=== PATIENT | male | born 1970 | race Caucasian/White ===

== ENCOUNTER → 2016-08-06 | Day surgery (SDC) | payer OTHER ==
[~2016-08-06] MED LIST: ACIPHEX20 MG PO; ACULAR 3 ML3 ML OPH; AMOXICILLIN500 MG PO; AUGMENTIN 875-875 MG PO; AURALGAN 15 ML15 ML OT; CILOXAN 5 ML5 M1 OT; CLARITIN-D 24 H1 T24 PO; CYCLOBENZAPRINE10 MG PO; FLONASE 0.05% 121 EA NAS; HUMALOG100 U/ML SC; HUMALOG100 UNIT/1 SQ; JANUMET 1000 MG1 TA1 PO; LANTUS100 U/ML SC; LISINOPRIL10 M1 PO; LISINOPRIL10 MG PO; MOBIC7.5 MG PO; MOTRIN800 MG PO; MULTI VITAMINS1 TAB PO; TOBREX OPHTH S2.5 ML OPH; ULTRAM50 MG PO; VITAMIN D400 IU PO; VITAMIN D50000 I3 PO; ZITHROMAX Z PA250 MG PO; [UNRECOGNIZED DRUG - OTHER]
--- NOTE | ~2016-08-06 | O ---
[place], [place] OPERATIVE NOTE [id number] UNIT #: [id number] ROOM: DOCTOR: DOROTEO MORGAN MD BIRTHDATE: [birth year] DOS: 08/06/2016 PREOPERATIVE DIAGNOSIS: Chronic otitis media with effusion. POSTOPERATIVE DIAGNOSES: Chronic otitis media with effusion. OPERATION: Left myringotomy with tube placement. SURGEON: Dr. Morgan ANESTHESIA: General OPERATIVE FINDINGS AND PROCEDURE: The patient was taken to the operating room for left MT. Following induction of general anesthesia, the patient was positioned supine on the OR table and draped in the standard fashion for ear surgery. The surgical microscope was brought into the operative field. The left ear was examined. Myringotomy was performed. Standard El tympanostomy tube was inserted, and topical Ciprofloxacin drops were instilled. The patient tolerated the procedure well, was awakened, and transported to PACU in satisfactory condition. DOROTEO MORGAN MD CM:OPRECORD:OPERATIVE NOTE [id number] DOROTEO MORGAN MD 08/09/16 1420 interface
[2016-08-06 06:59] VITALS: BP 130/90
[2016-08-06 07:55] VITALS: BP 110/72
[2016-08-06 08:10] VITALS: BP 108/61
[2016-08-06 08:25] VITALS: BP 104/68
== END | disposition home or self-care (01) ==
LOC: SDC 07-18 09:30
DX: H65.492 Other chronic nonsuppurative otitis media, left ear (principal); E11.9 Type 2 diabetes mellitus without complications; I10 Essential (primary) hypertension; Z83.3 Family history of diabetes mellitus; Z82.49 Family history of ischemic heart disease and other diseases of the circulatory system

== ENCOUNTER 2016-08-24 13:52 | Emergency (ER) | payer OTHER ==
[~2016-08-24] VITALS: Ht 175.2 cm; Wt 72.6 kg
[~2016-08-24 13:52] MED LIST changes: -CYCLOBENZAPRINE10 MG PO
[2016-08-24] MEDS ORDERED: CYCLOBENZAPRINE10 MG PO ×2 (16:01→19:07)
== END 2016-08-24 16:01 | disposition home or self-care (01) ==
LOC: ED 13:52
DX: S16.1XXA Strain of muscle, fascia and tendon at neck level, initial encounter (principal); I10 Essential (primary) hypertension; E10.10 Type 1 diabetes mellitus with ketoacidosis without coma; Z79.899 Other long term (current) drug therapy; X58.XXXA Exposure to other specified factors, initial encounter; Y93.89 Activity, other specified; Y92.9 Unspecified place or not applicable; Y99.9 Unspecified external cause status

== ENCOUNTER → 2017-05-21 | Outpatient (CLI) | payer OTHER ==
[~2017-05-21] MED LIST changes: +CYCLOBENZAPRINE10 MG PO
== END | disposition home or self-care (01) ==
LOC: RESCLI 01:00
DX: E11.40 Type 2 diabetes mellitus with diabetic neuropathy, unspecified (principal); G47.00 Insomnia, unspecified; R56.9 Unspecified convulsions; N52.9 Male erectile dysfunction, unspecified; F17.200 Nicotine dependence, unspecified, uncomplicated; I10 Essential (primary) hypertension; E56.9 Vitamin deficiency, unspecified; L40.50 Arthropathic psoriasis, unspecified; H90.3 Sensorineural hearing loss, bilateral; E66.3 Overweight; K21.9 Gastro-esophageal reflux disease without esophagitis; Z98.890 Other specified postprocedural states; Z71.6 Tobacco abuse counseling

== ENCOUNTER 2018-05-05 15:32 | Inpatient (IN) | payer SELFPAY ==
[~2018-05-05] VITALS: Ht 175.2 cm; Wt 68.9 kg
[2018-05-05] VITALS (8 sets, daily range): BP systolic 96–131; BP diastolic 46–76
--- NOTE | ~2018-05-05 | PR ---
[place], [place] PROGRESS NOTE NAME: SARAHY SIFUENTES UNIT #: [id number] ROOM: [facility] DOCTOR: JACOB RODRIGUEZ MD BIRTHDATE: [birth year] DOS: 05/07/2018 PULMONARY PROGRESS ADDENDUM NOTE SUBJECTIVE: The patient is independently seen and examined with [id number] encounter. History is confirmed, physical examination performed, and labs reviewed. Assessment and management today's note was personally completed. Note done by the claim review medical director has been approved as well. The patient has been noted sitting on the bed this morning without any need of oxygen, in no distress. Noted comfortable without symptoms of chest pain. He has not been noted any fever. OBJECTIVE: VITAL SIGNS: Showed normal temperature, respiratory rate 18, heart rate 83, blood pressure 124/72. The pulse oxygen saturation was recorded as 97% saturation on room air. HEENT: Head was atraumatic, eyes nonicterus. CARDIOVASCULAR: S1 and S2 audible. LUNGS: The patient was noted clear. ABDOMEN: Soft, nontender. Bowel sounds present. EXTREMITIES: The patient is without any acute edema. LABORATORY AND DIAGNOSTIC DATA: BMP done this morning was noted with complete resolution of the abnormal kidney function, normal BUN and creatinine today. Glucose noted 277. Chest x-ray that was done yesterday, PA and lateral view, does not show any acute cardiopulmonary disease. IMPRESSION: 1. The patient with possibly viral syndrome with acute diabetic ketoacidosis, which has resolved. 2. Acute kidney injury, also resolved. 3. Hyperkalemia, resolved. PLAN OF MANAGEMENT: The patient could be considered for home discharge whenever desired by the primary care attending. Continued medical management of diabetes per the primary care team. [place], [place] PROGRESS NOTE NAME: SARAHY SIFUENTES UNIT #: [id number] ROOM: [facility] DOCTOR: JACOB RODRIGUEZ MD BIRTHDATE: [birth year] JACOB BETANCUR MD CM:PNTRANS 7 6 JACOB DIAZ MD 05/07/18 0854 interface
--- NOTE | ~2018-05-05 | EKG ---
[place], [place] ELECTROCARDIOGRAM REPORT NAME: SARAHY SIFUENTES UNIT #: [id number] ROOM: [facility] DOCTOR: HERB DRAFT REPORT BIRTHDATE: [birth year] [facility] Test Date: 2018-05-05 Test Time: 16:31:49 Pat Name: SARAHY SIFUENTES Department: Room: [facility] Gender: M Accountant Cost: EKG.[place] : 1970 Requested By: GELY JARRETT Order Number: [id number] Reading MD: Nelson Nath MD Measurements Intervals [place] Rate: 108 P: 85 [place]: 177 QRS: 88 QRSD: 117 T: 41 QT: 342 QTc: 459 Interpretive Statements Sinus tachycardia Incomplete right bundle branch block ST elev, probable normal early repol pattern Electronically Signed On 05-10-2018 11:03:05 PDT by Nelson Nath MD CM:EKGRPT:ELECTROCARDIOGRAM REPORT [id number] GELY ESTEVEZ DRAFT REPORT GELY JARRETT
--- NOTE | ~2018-05-05 | CON ---
[place], [place] REPORT OF CONSULTATION NAME: SARAHY SIFUENTES [facility] #: [id number] UNIT #: [id number] ROOM: [facility] DOCTOR: JACOB RODRIGUEZ MD BIRTHDATE: [birth year] DOS: 05/06/2018 PULMONARY CONSULTATION, EVALUATION, AND MANAGEMENT REASON FOR CONSULTATION: For assessment of DKA episode last night. HISTORY OF PRESENT ILLNESS: This is a 47-year-old white male with known history of type 1 diabetes mellitus, insulin-dependent. The patient presented to the hospital, as he has been reporting symptoms of having increased chest congestion and coughing about a week, noted general weakness and fatigue and later noted with increased lethargy. The patient was also noted increased confusional status and vomiting. He has been brought to the hospital by the spouse. The patient has been noted with acute severe diabetic ketoacidosis. The patient is admitted to the hospital for further medical management. The patient has been started on insulin drip at 0.1 mg/kg body weight with the adjustment of the dose was done last night up to 12 units per hour insulin infusion. He also received intravenous fluids initially, normal saline, after that the D5W. Diabetic ketoacidosis has been resolved this morning. The patient does have symptoms of fever at home and chest congestion, which seemed to be better this morning. Denies symptoms of acute shortness of breath, chest pain, hemoptysis or wheezing. REVIEW OF SYSTEMS. CONSTITUTIONAL: Fatigue and tiredness which has improved. Mental status changes, confusion, resolved. EYES: Denies any burning, redness, or tenderness. EARS, NOSE, THROAT SYMPTOMS: Denies sore throat, hoarseness, otalgia, postnasal drainage or epistaxis. CARDIOVASCULAR: No angina pain, edema, pain of the lower extremities. GASTROINTESTINAL: No dysphagia, nausea, vomiting, diarrhea, abdominal pain, hematemesis, melena, or hematochezia. SKIN: Denies abnormal lesions or rashes. CENTRAL NERVOUS SYSTEM: Denies any dizziness, headache, diplopia, syncopal episodes at this time. History of seizures were known previously. Remaining systems were reviewed. They were noted all negative. PAST MEDICAL HISTORY: 1. Type 1 diabetes mellitus. 2. Bipolar disorder/depression. 3. Seizure disorder. 4. Essential hypertension. SOCIAL HISTORY: The patient is and lives at home. Denies history of alcohol use or illicit drug use. The patient was noted nonsmoker lifetime. FAMILY HISTORY: Noncontributory. HOME MEDICATIONS: Listed use of insulin pump for this patient infusion as well as use of Lantus insulin, multivitamins, Keppra, Neurontin, lisinopril 10 mg, [place], [place] REPORT OF CONSULTATION NAME: SARAHY SIFUENTES UNIT #: [id number] ROOM: [facility] DOCTOR: JACOB RODRIGUEZ MD BIRTHDATE: [birth year] vitamin D, Abilify and Percocet. DRUG ALLERGY HISTORY: The patient was noted with no known drug allergies. PHYSICAL EXAMINATION: GENERAL: This morning, this is a 47-year-old white male patient noted currently awake and alert without any distress this morning of assessment. Height of 5 feet 8 inches, weight of 150, BMI 22.4. VITAL SIGNS: Temperature 100.9 degrees Fahrenheit noted this morning and normal temperature previously, respiratory rate of 32 last night on admission, currently noted 18, heart rate with mild sinus tachycardia, range of 102. The highest heart rate noted at 121 beats per minute. The blood pressure ranging between 131/76 to 118/75. Intake for the patient recorded as 7650, the output of 3900 mL was 3.750 liters. Pulse ox saturation on room air was 99% saturation. HEENT: Examination shows head was atraumatic. Oral mucosa moist. NECK: Supple. CARDIOVASCULAR: S1, S2 audible. LUNGS: The patient was noted without any wheeze or crackles. ABDOMEN: Soft, nontender. Bowel sounds present. EXTREMITIES: The patient noted without any acute edema, clubbing or cyanosis. MUSCULOSKELETAL: Noted without any acute deformities. LABORATORY DATA: Reviewed. CBC that was done on 05/05/2018: WBC count 17.7, hemoglobin and hematocrit are normal. The platelet count noted normal at 346. The serum acetone level noted with dilution 132 positive. The CMP on 05/05/2018 on admission glucose is 1106 with BUN 35, creatinine 2.43. Sodium 122. Potassium 6.5, chloride of 82. CO2 was 5. Anion gap was noted 35 on admission. Arterial blood gas of the patient's pH of 7.02. BUN of 8.4, pO2 of 133. BMP of that was done the patient on 05/05/2018 repeated, glucose 1005, BUN 36, creatinine 2.42. Sodium 128, potassium still elevated at 6.7, CO2 of 8, chloride of 88. BMP of the patient this morning, glucose 210, BUN 19, creatinine 1.45, chloride of 112, carbon dioxide of 18. The phosphorus was 1.7. Anion gap for the patient was noted as 11 this morning. There was no albumin level done. Albumin level for the patient earlier were done shows albumin of 3.0. Phosphorus was noted at 0.3, CMP that was done at 4:12 a.m. The WBC count on 05/06/2018 noted WBC count 12.8. Hemoglobin 11.8, platelet count was normal. The chest x-ray that was done on 05/05/2018, the patient was noted without any acute abnormalities. IMPRESSION: 1. The patient who has been currently noted with acute diabetic ketoacidosis with possibility of concomitant hyperosmolar hyperglycemic syndrome. 2. History of type 2 diabetes mellitus. 3. The current diabetic ketoacidosis, most likely resulting from the respiratory infection, may be viral in origin, rule out any bacterial infection. So far, there was no source of infection other than respiratory symptoms have been reported with negative chest x-ray. The pneumonia symptom can be seen because of severe dehydration. 4. The patient with hyperkalemia with possibility of chronic diabetic [place], [place] REPORT OF CONSULTATION NAME: SARAHY SIFUENTES UNIT #: [id number] ROOM: [facility] DOCTOR: PIPE DIAZ MD,[facility] BIRTHDATE: [birth year] nephropathy would be very likely. The patient's hemoglobin A1c level was noted markedly elevated. The patient suggestive of uncontrolled diabetes at least for the past 3 months or greater. Hyperkalemia related to the acidosis, diabetic ketoacidosis and may be contributed by additional medication such as lisinopril would be considered. 5. History of essential hypertension as well. PLAN OF MANAGEMENT: The workup for the patient will be ordered with influenza A and B, nasal washing for this patient. Ordered viral profile nasal washing. Ordered sputum for Gram stain and culture. Repeat a chest x-ray to exclude any interval development of pulmonary infiltration, monitor temperature curve. Use of the antibiotic if the temperature curve worsens. Other supportive therapy and plan of management. The patient will be started on Lantus insulin and his on pump. The patient to be given. Also ordered the Solu-Medrol at this time. The reason of that unknown and will be discontinued. Monitor the respiratory status as well. It will be useful to have consultation from the Nephrology services to assess the patient for the possibility of chronic kidney disease. Keep the patient off the lisinopril until the potassium level resolve adequately. Reassess the patient and get the advice for using the medication such as lisinopril because of hyperkalemia noted on this patient. There was no need for Kayexalate. The patient does not require any other immediate intervention at this time with hyperkalemia is already resolved. Other supportive therapy, plan of management, care plan. Deep venous thrombosis prophylaxis as well. Total time in pulmonary critical care evaluation and management for the patient in consultation is 35 minutes. JACOB BETANCUR MD CM:CONSTR:REPORT OF CONSULTATION 1244 05/18/18 1002 interface
--- NOTE | ~2018-05-05 | PR ---
[place], [place] PROGRESS NOTE NAME: SARAHY SIFUENTES [facility] #: [id number] UNIT #: [id number] ROOM: [facility] DOCTOR: NYA MOORE DO BIRTHDATE: [birth year] DOS: 05/07/2018 SUBJECTIVE: The patient was seen and examined at the bedside. He denied fevers, chills, chest pain, shortness of breath, nausea, vomiting, diarrhea or any changes in his bowel or bladder habits. He states that he is feeling quite well today and is at his baseline. OBJECTIVE: VITAL SIGNS: Show temperature at 100.0, heart rate at 77, respiratory rate at 18, blood pressure 158/98, pulse oximetry was last recorded at 97% on room air. GENERAL APPEARANCE: The patient was awake, alert, responsive, cooperative and in no acute distress. HEENT: Head was normocephalic and atraumatic. There were no lesions or ulcerations noted to the eyes. NECK: Trachea appears midline. HEART: Regular rate and rhythm was noted. Positive S1, S2 sounds are heard. No murmurs, rubs or gallops were appreciated. Bilateral lower extremities were without edema. PULMONARY: Lungs are clear to auscultation bilaterally. No rhonchi, rales or wheezing was appreciated. ABDOMEN: Soft, nondistended, nontender to palpation. Bowel sounds were present. EXTREMITIES: The bilateral lower extremities were without edema. No clubbing, cyanosis or erythema was noted. There were tattoos noted to the patient's bilateral forearms. LABORATORY DATA: CBC from today shows white count at 12.5, hemoglobin 10.8, hematocrit 31.1, platelets at 153. Chemistries from today shows sodium at 142, potassium at 4.3, chloride at 108, bicarbonate at 21, BUN at 11, creatinine at 0.98, glucose at 227, calcium at 8.2, phosphorus at 2.1, magnesium at 1.9, total bilirubin 0.3, AST 12, ALT 17, alkaline phosphatase 82, albumin 3.0. In terms of serologies a viral panel is pending. In terms of microbiology blood cultures obtained on admission are pending. Nasal swab for MRSA surveillance is pending. A rapid flu swab was negative for flu A or flu B. In terms of imaging studies the most recent chest x-ray obtained on 05/06/2018 showed no acute cardiopulmonary disease. IMPRESSION: 1. Diabetic ketoacidosis, likely secondary to a possible viral syndrome, resolved. 2. Acute renal failure, resolved. 3. Hyperkalemia, resolved. 4. Leukocytosis. 5. Normocytic anemia. 6. Lymphopenia. 7. Hyperchloremia. 8. Hyperglycemia. 9. Hypophosphatemia. 10. Moderate protein-calorie malnutrition. [place], [place] PROGRESS NOTE NAME: SARAHY SIFUENTES [place] UNIT #: [id number] ROOM: [facility] DOCTOR: NYA MOORE DO BIRTHDATE: [birth year] PLAN OF MANAGEMENT: The patient is stable at this time for consideration of discharge, his DKA, acute renal failure and hyperkalemia have all resolved. There is a suspicion that the patient's insulin pump may not be working properly. Given his hemoglobin A1c of 11.5 the patient was advised to continue to follow with his wax pourer for further management of his diabetes. Nya Moore, JACOB BETANCUR MD CM:PNTRANS NYA MOORE DO 05/07/18 0957 interface
[2018-05-05] MEDS ORDERED: KEPPRA250 MG PO (15:46)
[2018-05-05] MEDS ORDERED: NEURONTIN300 MG PO (15:47)
[2018-05-05] MEDS ORDERED: Percocet 325 MG1 TAB PO (15:48)
[2018-05-05 16:36] LABS: BASO # 0.1 10*3/uL (0.0-0.1); BASO % 0.6 % (0.0-1.0); EOS % 0.1 % (1.0-4.0); HEMATOCRIT 45.4 % (42.0-52.0); HEMOGLOBIN 14.7 g/dl (14.0-18.0); LYMPH % 5.6 % (27.0-41.0); MEAN CELL VOLUME 96.6 fl (80.0-94.0); MEAN CORPUSCULAR HGB 31.3 pg (27.0-31.0); MEAN CORPUSCULAR HGB CONC 32.4 g/dl (33.0-37.0); MEAN PLATELET VOLUME 10.3 fl (9.6-12.3); MONO # 1.1 10*3/uL (0.1-1.0); MONO % 6.2 % (3.0-9.0); NEUT # 15.3 10*3/uL (2.3-7.9); NEUT % 86.5 % (47.0-73.0); PLATELET COUNT AUTOMATED 346 10*3/uL (130-400); RED CELL DISTRI WIDTH 12.5 % (0-14.5); WHITE BLOOD COUNT 17.7 10*3/uL (4.8-10.8)
[2018-05-05 16:52] LABS: CREATININE 2.43 mg/dL (0.70-1.30); TOTAL PROTEIN 8.2 gm/dL (6.4-8.2)
[2018-05-05 17:04] LABS: POTASSIUM 6.5 mmol/L (3.5-5.1)
[2018-05-05 17:39] LABS: ABG HCO3 2.1 mmol/l (22-26); ABG O2 SATURATION 97.5 % (95-97)
[2018-05-05 17:41] LABS: ABG BASE EXCESS -29.3 mmol/L (-2.0-2.0); ARTERIAL BLOOD GAS PCO2 8.4 mmHg (35-45); ARTERIAL BLOOD GAS PH 7.026 (7.35-7.45)
[2018-05-05 19:06] LABS: CREATININE 2.42 mg/dL (0.70-1.30)
[2018-05-05 19:16] LABS: POTASSIUM 6.7 mmol/L (3.5-5.1)
[2018-05-05 19:59] LABS: CREATININE 2.02 mg/dL (0.70-1.30)
[2018-05-05 20:02] LABS: POTASSIUM 5.1 mmol/L (3.5-5.1)
[2018-05-05 23:07] LABS: CREATININE 2.2 mg/dL (0.70-1.30); POTASSIUM 5.1 mmol/L (3.5-5.1)
[2018-05-06] VITALS: BP 119/59
[2018-05-06 01:24] LABS: CREATININE 2.06 mg/dL (0.70-1.30); POTASSIUM 4.7 mmol/L (3.5-5.1)
[2018-05-06 04:00] VITALS: BP 132/81
[2018-05-06 04:20] LABS: BASO % 0.2 % (0.0-1.0); HEMATOCRIT 33.9 % (42.0-52.0); HEMOGLOBIN 11.8 g/dl (14.0-18.0); LYMPH # 1.2 10*3/uL (1.3-4.4); MEAN CELL VOLUME 89.2 fl (80.0-94.0); MEAN CORPUSCULAR HGB 31.1 pg (27.0-31.0); MEAN CORPUSCULAR HGB CONC 34.8 g/dl (33.0-37.0); MEAN PLATELET VOLUME 9.3 fl (9.6-12.3); MONO # 0.6 10*3/uL (0.1-1.0); MONO % 4.3 % (3.0-9.0); NEUT % 85.8 % (47.0-73.0); PLATELET COUNT AUTOMATED 208 10*3/uL (130-400); RED CELL DISTRI WIDTH 12.9 % (0-14.5); WHITE BLOOD COUNT 12.8 10*3/uL (4.8-10.8)
[2018-05-06 04:37] LABS: CREATININE 1.84 mg/dL (0.70-1.30); TOTAL PROTEIN 6.3 gm/dL (6.4-8.2)
[2018-05-06 04:56] LABS: PHOSPHOROUS 0.8 mg/dL (2.5-4.9)
[2018-05-06 05:11] LABS: THYROID STIM HORMONE (HS) 0.306 uIU/ml (0.358-4.75)
[2018-05-06 05:19] LABS: VITAMIN D, 25-HYDROXY 16.5 ng/mL (30-100)
[2018-05-06 08:00] VITALS: BP 118/75
[2018-05-06 08:58] LABS: BUN 19 mg/dl (7-24); CHLORIDE 112 mmol/L (98-107); CREATININE 1.45 mg/dL (0.70-1.30); POTASSIUM 4.3 mmol/L (3.5-5.1); SODIUM 144 mmol/L (136-145)
[2018-05-06 09:01] LABS: FREE T4 1.01 ng/dl (0.76-1.46); PHOSPHOROUS 1.7 mg/dL (2.5-4.9)
[2018-05-06 12:48] LABS: BUN 18 mg/dl (7-24); CHLORIDE 106 mmol/L (98-107); POTASSIUM 4.3 mmol/L (3.5-5.1); SODIUM 139 mmol/L (136-145)
[2018-05-06] MEDS ORDERED: PERCOCET 7.5-31 EACH PO (14:33)
[2018-05-06 16:00] VITALS: BP 127/77
[2018-05-06 16:52] LABS: BUN 16 mg/dl (7-24); CHLORIDE 105 mmol/L (98-107); CREATININE 1.19 mg/dL (0.70-1.30); POTASSIUM 3.8 mmol/L (3.5-5.1); SODIUM 137 mmol/L (136-145)
[2018-05-06 20:00] VITALS: BP 131/77
[2018-05-07] VITALS: BP 133/86
[2018-05-07 04:00] VITALS: BP 124/72
[2018-05-07 05:56] LABS: BASO % 0.1 % (0.0-1.0); HEMATOCRIT 31.1 % (42.0-52.0); HEMOGLOBIN 10.8 g/dl (14.0-18.0); LYMPH # 2.2 10*3/uL (1.3-4.4); LYMPH % 17.8 % (27.0-41.0); MEAN CELL VOLUME 90.4 fl (80.0-94.0); MEAN CORPUSCULAR HGB 31.4 pg (27.0-31.0); MEAN CORPUSCULAR HGB CONC 34.7 g/dl (33.0-37.0); MONO # 0.9 10*3/uL (0.1-1.0); MONO % 6.9 % (3.0-9.0); NEUT # 9.3 10*3/uL (2.3-7.9); NEUT % 74.9 % (47.0-73.0); PLATELET COUNT AUTOMATED 153 10*3/uL (130-400); RED BLOOD COUNT 3.44 10*6/uL (4.50-5.90); RED CELL DISTRI WIDTH 13.7 % (0-14.5); WHITE BLOOD COUNT 12.5 10*3/uL (4.8-10.8)
[2018-05-07 06:19] LABS: BUN 11 mg/dl (7-24); CHLORIDE 108 mmol/L (98-107); POTASSIUM 4.3 mmol/L (3.5-5.1); SGOT/AST 12 IU/L (3-35); SODIUM 142 mmol/L (136-145)
[2018-05-07 06:31] LABS: ALKALINE PHOSPHATASE 82 U/L (45-117); CREATININE 0.98 mg/dL (0.70-1.30); PHOSPHOROUS 2.1 mg/dL (2.5-4.9); SGPT/ALT 17 U/L (12-78); TOTAL PROTEIN 6.1 gm/dL (6.4-8.2)
[2018-05-07 08:00] VITALS: BP 158/98
[2018-05-07] MEDS ORDERED: ZITHROMAX250 MG PO (11:33)
[2018-05-07] MEDS ORDERED: PHENERGAN25 M3 PO (11:33)
[2018-05-07] MEDS ORDERED: MUCINEX ER600 MG PO (11:33)
[2018-05-09 00:02] LABS: ADENOVIRUS Negative (Negative); INFLUENZA A Negative (Negative); INFLUENZA B Negative (Negative); METAPNEUMOVIRUS Negative (Negative); PARAINFLUENZA 1 Negative (Negative); PARAINFLUENZA 2 Negative (Negative); PARAINFLUENZA 3 Negative (Negative); RHINOVIRUS Negative (Negative); RSV A Negative (Negative); RSV B Negative (Negative)
[2018-06-22] MEDS ORDERED: INSULIN PUMP (01:03)
[2018-06-24] MEDS ORDERED: Lantus SC (10:56)
== END 2018-05-07 12:00 | disposition home or self-care (01) | DRG 871 ==
LOC: ED 15:32 → ICCU 17:54
PROVIDERS: Emergency Medicine; Internal Medicine; Internal Medicine Critical Care Medicine; Student in an Organized Health Care Education/Training Program
DX: A41.9 Sepsis, unspecified organism (principal); E10.10 Type 1 diabetes mellitus with ketoacidosis without coma; N17.0 Acute kidney failure with tubular necrosis; G93.41 Metabolic encephalopathy; E87.1 Hypo-osmolality and hyponatremia; E44.0 Moderate protein-calorie malnutrition; E87.8 Other disorders of electrolyte and fluid balance, not elsewhere classified; E87.5 Hyperkalemia; E86.0 Dehydration; D72.829 Elevated white blood cell count, unspecified; D75.89 Other specified diseases of blood and blood-forming organs; I10 Essential (primary) hypertension; L40.9 Psoriasis, unspecified; D64.9 Anemia, unspecified; E83.39 Other disorders of phosphorus metabolism; J20.9 Acute bronchitis, unspecified; G89.29 Other chronic pain; F17.220 Nicotine dependence, chewing tobacco, uncomplicated; K21.9 Gastro-esophageal reflux disease without esophagitis; F31.9 Bipolar disorder, unspecified; G40.909 Epilepsy, unspecified, not intractable, without status epilepticus; Z83.3 Family history of diabetes mellitus; Z81.1 Family history of alcohol abuse and dependence; Z79.899 Other long term (current) drug therapy; Z68.22 Body mass index [BMI] 22.0-22.9, adult

== ENCOUNTER → 2018-07-08 | Outpatient (CLI) | payer SELFPAY ==
[~2018-07-08] MED LIST changes: +INSULIN PUMP; +KEPPRA250 MG PO; +Lantus SC; +MUCINEX ER600 MG PO; +NEURONTIN300 MG PO; +PERCOCET 7.5-31 EACH PO; +PHENERGAN25 M3 PO; +Percocet 325 MG1 TAB PO; +ZITHROMAX250 MG PO
== END | disposition home or self-care (01) ==
LOC: RESCLI 02:11
DX: I10 Essential (primary) hypertension (principal); L40.9 Psoriasis, unspecified; G47.00 Insomnia, unspecified; K21.9 Gastro-esophageal reflux disease without esophagitis; E11.51 Type 2 diabetes mellitus with diabetic peripheral angiopathy without gangrene; E55.9 Vitamin D deficiency, unspecified; R56.9 Unspecified convulsions; E56.9 Vitamin deficiency, unspecified; Z79.899 Other long term (current) drug therapy; Z88.0 Allergy status to penicillin; Z88.8 Allergy status to other drugs, medicaments and biological substances

== ENCOUNTER → 2018-08-26 | Outpatient (CLI) | payer OTHER ==
[2018-08-26 16:39] LABS: BASO # 0.1 10*3/uL (0.0-0.1); EOS # 0.2 10*3/uL (0.0-0.4); EOS % 2.9 % (1.0-4.0); HEMATOCRIT 44.9 % (42.0-52.0); HEMOGLOBIN 15.6 g/dl (14.0-18.0); LYMPH # 2.1 10*3/uL (1.3-4.4); MEAN CELL VOLUME 88.6 fl (80.0-94.0); MEAN CORPUSCULAR HGB 30.8 pg (27.0-31.0); MEAN CORPUSCULAR HGB CONC 34.7 g/dl (33.0-37.0); MEAN PLATELET VOLUME 9.6 fl (9.6-12.3); MONO # 0.6 10*3/uL (0.1-1.0); MONO % 7.7 % (3.0-9.0); NEUT # 5.1 10*3/uL (2.3-7.9); NEUT % 62.3 % (47.0-73.0); PLATELET COUNT AUTOMATED 326 10*3/uL (130-400); RED BLOOD COUNT 5.07 10*6/uL (4.50-5.90); RED CELL DISTRI WIDTH 11.9 % (0-14.5); WHITE BLOOD COUNT 8.2 10*3/uL (4.8-10.8)
[2018-08-26 17:08] LABS: ALBUMIN 3.8 gm/dl (3.1-4.5); ALKALINE PHOSPHATASE 107 U/L (45-117); BUN 23 mg/dl (7-24); CHLORIDE 100 mmol/L (98-107); CREATININE 1.07 mg/dL (0.70-1.30); POTASSIUM 4.5 mmol/L (3.5-5.1); SGOT/AST 11 IU/L (3-35); SGPT/ALT 21 U/L (12-78); SODIUM 136 mmol/L (136-145); TOTAL PROTEIN 7.8 gm/dL (6.4-8.2)
[2018-08-28 18:05] LABS: TB1 Ag VALUE 0.03 IU/mL (.)
== END | disposition home or self-care (01) ==
LOC: LAB 16:15
PROVIDERS: Specialist
DX: L40.0 Psoriasis vulgaris (principal)

== ENCOUNTER 2019-02-19 13:08 | Inpatient (IN) | payer OTHER ==
[~2019-02-19] VITALS: Ht 177.8 cm; Wt 64.0 kg
[2019-02-19] VITALS (8 sets, daily range): BP systolic 93–129; BP diastolic 45–86
--- NOTE | ~2019-02-19 | EKG ---
[place], [place] ELECTROCARDIOGRAM REPORT NAME: SARAHY SIFUENTES UNIT #: [id number] ROOM: [facility] DOCTOR: HERB DRAFT REPORT BIRTHDATE: [birth year] [facility] Test Date: 2019-02-19 Test Time: 13:35:24 Pat Name: SARAHY SIFUENTES Department: Room: [facility] Gender: M Clean Out Driller: Capri Benavides : 1970 Requested By: KAYLEE SCHAFFER Order Number: [id number] Reading MD: Marlene Atkinson MD Measurements Intervals [place] Rate: 118 P: 73 HI: 160 QRS: 75 QRSD: 92 T: 44 QT: 346 QTc: 485 Interpretive Statements Sinus tachycardia Biatrial enlargement Borderline prolonged QT interval Baseline wander in lead(s) V1 Compared to ECG 06/22/2018 07:47:18 Atrial abnormality now present Electronically Signed On 02-20-2019 9:19:32 PDT by Marlene Atkinson MD CM:EKGRPT:ELECTROCARDIOGRAM REPORT 1335 KAYLEE OLVERA DRAFT REPORT KAYLEE SCHAFFER DO
[2019-02-19 13:43] LABS: HEMATOCRIT 46.5 % (42.0-52.0); HEMOGLOBIN 15.5 g/dl (14.0-18.0); MEAN CELL VOLUME 94.1 fl (80.0-94.0); MEAN CORPUSCULAR HGB 31.4 pg (27.0-31.0); MEAN CORPUSCULAR HGB CONC 33.3 g/dl (33.0-37.0); MEAN PLATELET VOLUME 10.2 fl (9.6-12.3); PLATELET COUNT AUTOMATED 338 10*3/uL (130-400); RED BLOOD COUNT 4.94 10*6/uL (4.50-5.90); RED CELL DISTRI WIDTH 12.5 % (0-14.5); WHITE BLOOD COUNT 14.9 10*3/uL (4.8-10.8)
[2019-02-19 13:54] LABS: ACT PARTIAL THROMBO TIME 23.9 SECONDS (20.0-32.1); INTERNATIONAL NORM RATIO 0.8 (2.0-3.5)
[2019-02-19 13:58] LABS: ALBUMIN 4.2 gm/dl (3.1-4.5); ALKALINE PHOSPHATASE 138 U/L (45-117); BUN 45 mg/dl (7-24); CHLORIDE 84 mmol/L (98-107); CREATININE 2.82 mg/dL (0.70-1.30); POTASSIUM 5.1 mmol/L (3.5-5.1); SGOT/AST 18 IU/L (3-35); SGPT/ALT 36 U/L (12-78); SODIUM 130 mmol/L (136-145); TOTAL PROTEIN 8.5 gm/dL (6.4-8.2)
[2019-02-19 14:00] LABS: PLATELET SUFFICIENCY NORMAL (NORMAL); TOTAL CELLS COUNTED 100 #CELLS
[2019-02-19 14:01] LABS: LIPASE 3126 U/L (73-393); TROPONIN I < 0.015 ng/ml (<0.045)
--- NOTE | 2019-02-19 14:01 | NUR ---
CRITICAL LAB RESULTS GIVEN TO DR SCHAFFER
[2019-02-19 14:10] LABS: BILIRUBIN 1+ (NEGATIVE); BLOOD 3+ (NEGATIVE); CLARITY CLEAR (CLEAR); COLOR YELLOW (YELLOW); GLUCOSE 3+ (NEGATIVE); KETONE 3+ (NEGATIVE); LEUKO ESTERASE NEGATIVE (NEGATIVE); NITRITE NEGATIVE (NEGATIVE); PH 5.5 (5.0-9.0); SPECIFIC GRAVITY 1.025 (1.005-1.030); UROBILINOGEN 0.2 E.U./dl (0.2-1.0)
[2019-02-19 14:26] LABS: BACTERIA 1+; EPITHELIAL CELLS 0-2; HYALINE CAST 0-2; RBC 41-50 rbc/hpf (0-2); WBC 0-2 wbc/hpf (0-5)
--- NOTE | 2019-02-19 15:00 | NUR ---
A 48, admitted to ICCU, under the services of MOLLY Kearns DO with a diagnosis of DKA, RENAL FAILURE, DEHYDRATION, PANCREATITIS. Chief complaint is ELEVATED BLOOD GLUCOSE, WEAKNESS, VOMITING. Patient arrived via stretcher from ER. Monitor applied. Initial assessment completed. Vital signs taken and recorded. MOLLY KEARNS DO notified of admission to the unit. Orders received. See assessment for past medical history, medications and allergies. Patient and/or family oriented to unit. [facility] ICCU visitation policy reviewed. Clothing/patient valuable form completed. BHARATHI PEDERSEN
--- NOTE | 2019-02-19 16:22 | NUR ---
BEDSIDE GLUCOSE CHECK 530. INSULIN GTT INCREASED TO 10UNITS/HR PER PROTOCOL.
--- NOTE | 2019-02-19 17:24 | NUR ---
BEDSIDE GLUCOSE 439. INSULIN GTT INCREASED TO 11UINTS HR PER PROTOCOL.
[2019-02-19 18:54] LABS: CREATININE 2.41 mg/dL (0.70-1.30)
[2019-02-19 18:55] LABS: POTASSIUM 3.8 mmol/L (3.5-5.1)
--- NOTE | 2019-02-19 19:00 | NUR ---
BS 330 INSULIN GTT INCREASED TO 12UNITS PER PROTCOL. PATIENT SLEEPING, DOES AWAKE EASILY. VSS.
--- NOTE | 2019-02-19 20:30 | NUR ---
PATIENT AWOKE HAVING ABDOMINAL PAIN, RATES 10/10. MORPHINE GIVEN. WILL MONITOR AND REASSESS.
--- NOTE | 2019-02-19 21:36 | NUR ---
PATIENT RESTING, NO SIGNS OF DISTRESS. MORPHINE EFFECTIVE.
[2019-02-19 22:47] LABS: CREATININE 1.97 mg/dL (0.70-1.30); POTASSIUM 3.8 mmol/L (3.5-5.1)
--- NOTE | 2019-02-19 23:50 | NUR ---
PATIENT STATED THE MORPPHINE DIDNT HELP EARLIER FOR HIS PAIN.
--- NOTE | 2019-02-19 23:52 | NUR ---
PATIENT HAS COMPLAINT OF AB PAIN AND BACK PAIN. RATES 10/10. MORPHINE GIVEN. WILL MONITOR AND REASSESS.
[2019-02-20] VITALS: BP 130/85
[2019-02-20 02:05] LABS: CREATININE 1.77 mg/dL (0.70-1.30); POTASSIUM 3.9 mmol/L (3.5-5.1)
--- NOTE | 2019-02-20 03:13 | NUR ---
PATIENT STILL HAS COMPLAINT OF PAIN, ANOTHER DOSE OF MORPHINE GIVEN. WILL MONITOR AND REASSESS.
[2019-02-20 04:00] VITALS: BP 141/90
[2019-02-20 06:13] LABS: WHITE BLOOD COUNT 8.6 10*3/uL (4.8-10.8)
[2019-02-20 06:23] LABS: PHOSPHOROUS 1.8 mg/dL (2.5-4.9)
[2019-02-20 06:31] LABS: BUN 30 mg/dl (7-24); CHLORIDE 110 mmol/L (98-107); SODIUM 144 mmol/L (136-145)
[2019-02-20 08:00] VITALS: BP 158/97
--- NOTE | 2019-02-20 08:11 | NUR ---
PATIENT C/O HEADACHE. MEDICATED WITH TYLENOL PER PRN ORDER.
[2019-02-20 08:24] LABS: BASO % 0.1 % (0.0-1.0); EOS % 0.1 % (1.0-4.0); LYMPH % 11.7 % (27.0-41.0); MEAN CELL VOLUME 91.6 fl (80.0-94.0); MEAN CORPUSCULAR HGB 31.7 pg (27.0-31.0); MEAN CORPUSCULAR HGB CONC 34.6 g/dl (33.0-37.0); MEAN PLATELET VOLUME 9.9 fl (9.6-12.3); MONO # 0.9 10*3/uL (0.1-1.0); MONO % 10.4 % (3.0-9.0); NEUT # 6.7 10*3/uL (2.3-7.9); NEUT % 77.5 % (47.0-73.0); PLATELET COUNT AUTOMATED 257 10*3/uL (130-400); RED BLOOD COUNT 4.07 10*6/uL (4.50-5.90); RED CELL DISTRI WIDTH 12.7 % (0-14.5)
[2019-02-20 08:26] LABS: HEMATOCRIT 37.3 % (42.0-52.0); HEMOGLOBIN 12.9 g/dl (14.0-18.0)
--- NOTE | 2019-02-20 09:24 | NUR ---
PATIENT CONTINUES TO C/O HEADACHE. TYLENOL INEFFECTIVE. MEDICATED WITH PERCOCET PER PRN ORDER.
[2019-02-20 10:34] LABS: BUN 24 mg/dl (7-24); CHLORIDE 105 mmol/L (98-107); CREATININE 1.36 mg/dL (0.70-1.30); POTASSIUM 3.8 mmol/L (3.5-5.1); SODIUM 140 mmol/L (136-145)
[2019-02-20 12:00] VITALS: BP 119/77
[2019-02-20 16:00] VITALS: BP 116/74
[2019-02-20 20:00] VITALS: BP 124/74
--- NOTE | 2019-02-20 20:00 | NUR ---
PT RESTING IN BED WITH EYES CLOSED, AWAKENS WITH EASE. RESP NONLABORED. NO ACUTE DISTRESS NOTED. NO COMPLAINTS VOICED. NO S/S OF HYPO/HYPERGLYCEMIA NOTED.
--- NOTE | 2019-02-20 21:30 | NUR ---
MEDICATED WITH ZOFRAN PER PRN ORDER FOR C/O NAUSEA.
--- NOTE | 2019-02-20 22:50 | NUR ---
MEDICATED WITH PERCOCET PER PRN ORDER FOR C/O PAIN.
[2019-02-21] VITALS: BP 147/85
[2019-02-21 04:00] VITALS: BP 148/89
--- NOTE | 2019-02-21 04:00 | NUR ---
MEDICATED WITH ZOFRAN PER PRN ORDER FOR C/O NAUSEA.
[2019-02-21 05:59] LABS: ALBUMIN 3.1 gm/dl (3.1-4.5); ALKALINE PHOSPHATASE 93 U/L (45-117); CHLORIDE 96 mmol/L (98-107); POTASSIUM 3.7 mmol/L (3.5-5.1); SGOT/AST 18 IU/L (3-35); SGPT/ALT 23 U/L (12-78); SODIUM 132 mmol/L (136-145); TOTAL PROTEIN 6.3 gm/dL (6.4-8.2)
[2019-02-21 06:00] LABS: BUN 9 mg/dl (7-24)
[2019-02-21 06:05] LABS: BASO % 0.3 % (0.0-1.0); EOS # 0.1 10*3/uL (0.0-0.4); EOS % 0.8 % (1.0-4.0); HEMATOCRIT 36.8 % (42.0-52.0); HEMOGLOBIN 12.5 g/dl (14.0-18.0); LYMPH # 1.9 10*3/uL (1.3-4.4); LYMPH % 25.5 % (27.0-41.0); MEAN CELL VOLUME 93.4 fl (80.0-94.0); MEAN CORPUSCULAR HGB 31.7 pg (27.0-31.0); MEAN PLATELET VOLUME 9.9 fl (9.6-12.3); MONO # 0.7 10*3/uL (0.1-1.0); NEUT # 4.7 10*3/uL (2.3-7.9); NEUT % 63.1 % (47.0-73.0); PLATELET COUNT AUTOMATED 195 10*3/uL (130-400); RED BLOOD COUNT 3.94 10*6/uL (4.50-5.90); RED CELL DISTRI WIDTH 12.3 % (0-14.5); WHITE BLOOD COUNT 7.4 10*3/uL (4.8-10.8)
--- NOTE | 2019-02-21 06:30 | NUR ---
MEDICATED WITH PERCOCET PER PRN ORDER FOR C/O PAIN.
--- NOTE | 2019-02-21 07:10 | NUR ---
PERCOCET AND ZOFRAN HAVE BEEN EFFECTIVE THROUGHOUT SHIFT.
[2019-02-21 08:00] VITALS: BP 150/88
--- NOTE | 2019-02-21 10:23 | NUR ---
PATIENT DISCHARGED TO HOME. ALL PERSONAL BELONGINGS SENT WITH PATIENT. IV AND SPINNER FRAME DISCONTINUED. DISCHARGE INSTRUCTIONS GIVEN AND REVIEWED WITH PATIENT.
== END 2019-02-21 10:23 | disposition home or self-care (01) | DRG 438 ==
LOC: ED 13:08 → EDHOLD 14:22 → ICCU 14:23
PROVIDERS: Emergency Medicine; Internal Medicine; ADMIT Internal Medicine
DX: K85.80 Other acute pancreatitis without necrosis or infection (principal); E10.10 Type 1 diabetes mellitus with ketoacidosis without coma; R65.11 Systemic inflammatory response syndrome (SIRS) of non-infectious origin with acute organ dysfunction; N17.0 Acute kidney failure with tubular necrosis; E87.1 Hypo-osmolality and hyponatremia; I10 Essential (primary) hypertension; E86.0 Dehydration; Z84.0 Family history of diseases of the skin and subcutaneous tissue; Z79.899 Other long term (current) drug therapy

== ENCOUNTER 2019-07-28 20:25 | Inpatient (IN) | payer OTHER ==
[~2019-07-28] VITALS: Ht 172.7 cm; Wt 66.7 kg
[2019-07-28 20:26] VITALS: BP 138/52
[2019-07-28 21:27] LABS: BASO % 0.2 % (0.0-1.0); EOS # 0.2 10*3/uL (0.0-0.4); HEMATOCRIT 42.2 % (42.0-52.0); HEMOGLOBIN 13.1 g/dl (14.0-18.0); LYMPH # 1.1 10*3/uL (1.3-4.4); LYMPH % 5.7 % (27.0-41.0); MEAN CELL VOLUME 101.4 fl (80.0-94.0); MEAN CORPUSCULAR HGB 31.5 pg (27.0-31.0); MEAN PLATELET VOLUME 10.2 fl (9.6-12.3); MONO # 1.4 10*3/uL (0.1-1.0); MONO % 7.3 % (3.0-9.0); NEUT # 15.8 10*3/uL (2.3-7.9); NEUT % 85.2 % (47.0-73.0); PLATELET COUNT AUTOMATED 452 10*3/uL (130-400); RED BLOOD COUNT 4.16 10*6/uL (4.50-5.90); RED CELL DISTRI WIDTH 12.6 % (0-14.5); WHITE BLOOD COUNT 18.6 10*3/uL (4.8-10.8)
[2019-07-28 21:38] LABS: ACT PARTIAL THROMBO TIME 26.9 SECONDS (20.0-32.1); INTERNATIONAL NORM RATIO 0.9 (2.0-3.5)
[2019-07-28 21:43] LABS: ALBUMIN 3.9 gm/dl (3.1-4.5); ALKALINE PHOSPHATASE 99 U/L (45-117); BUN 44 mg/dl (7-24); CHLORIDE 82 mmol/L (98-107); CREATININE 2.67 mg/dL (0.70-1.30); LIPASE 266 U/L (73-393); POTASSIUM 5.7 mmol/L (3.5-5.1); SGOT/AST 12 IU/L (3-35); SGPT/ALT 22 U/L (12-78); SODIUM 123 mmol/L (136-145); TOTAL PROTEIN 7.4 gm/dL (6.4-8.2)
[2019-07-28 21:46] LABS: TROPONIN I < 0.015 ng/ml (<0.045)
[2019-07-28 22:00] VITALS: BP 144/56
--- NOTE | 2019-07-28 22:14 | NUR ---
PT'S PH 7.074. DR. [place].
[2019-07-28 22:15] LABS: ABG BASE EXCESS -27.4 mmol/L (-2.0-2.0); ARTERIAL BLOOD GAS PH 7.074 (7.35-7.45)
[2019-07-29] VITALS (9 sets, daily range): BP systolic 95–138; BP diastolic 46–82
--- NOTE | 2019-07-29 01:20 | NUR ---
PT'S GLUCOSE 726. DR. [place].
--- NOTE | 2019-07-29 02:00 | NUR ---
CCAD[place] 48, admitted to ICCU, under the services of CARLOS Samuel DO with a diagnosis of DKA. Chief complaint is NAUSEA/VOMITING, ELEVATED BLOOD SUGAR. Patient arrived via bed from ER. Monitor applied. Initial assessment completed. Vital signs taken and recorded. CARLOS SAMUEL DO notified of admission to the unit. Orders received. See assessment for past medical history, medications and allergies. Patient and/or family oriented to unit. [facility] ICCU visitation policy reviewed. Clothing/patient valuable form completed. JUNG STEVE
[2019-07-29 02:03] LABS: BASO % 0.1 % (0.0-1.0); EOS % 0.1 % (1.0-4.0); HEMATOCRIT 33.4 % (42.0-52.0); HEMOGLOBIN 11.4 g/dl (14.0-18.0); LYMPH # 0.8 10*3/uL (1.3-4.4); LYMPH % 5.3 % (27.0-41.0); MEAN CORPUSCULAR HGB 31.4 pg (27.0-31.0); MEAN CORPUSCULAR HGB CONC 34.1 g/dl (33.0-37.0); MEAN PLATELET VOLUME 9.5 fl (9.6-12.3); MONO # 0.7 10*3/uL (0.1-1.0); MONO % 4.6 % (3.0-9.0); NEUT # 12.7 10*3/uL (2.3-7.9); NEUT % 89.4 % (47.0-73.0); PLATELET COUNT AUTOMATED 302 10*3/uL (130-400); RED BLOOD COUNT 3.63 10*6/uL (4.50-5.90); RED CELL DISTRI WIDTH 12.2 % (0-14.5); WHITE BLOOD COUNT 14.2 10*3/uL (4.8-10.8)
[2019-07-29 02:16] LABS: CREATININE 2.44 mg/dL (0.70-1.30); PHOSPHOROUS 1.2 mg/dL (2.5-4.9)
[2019-07-29 02:18] LABS: POTASSIUM 3.7 mmol/L (3.5-5.1)
[2019-07-29 02:34] LABS: BILIRUBIN NEGATIVE (NEGATIVE); BLOOD 1+ (NEGATIVE); CLARITY SL CLOUDY (CLEAR); COLOR YELLOW (YELLOW); GLUCOSE 3+ (NEGATIVE); KETONE 2+ (NEGATIVE); LEUKO ESTERASE NEGATIVE (NEGATIVE); NITRITE NEGATIVE (NEGATIVE); SPECIFIC GRAVITY 1.025 (1.005-1.030); UROBILINOGEN 0.2 E.U./dl (0.2-1.0)
[2019-07-29 02:41] LABS: WBC 0-2 wbc/hpf (0-5)
--- NOTE | 2019-07-29 03:04 | NUR ---
PATIENT STATED THAT HE NEED A PERCOCET TO HELP HIM WITH HIS CHRONIC PAIN AND TO HELP HIM SLEEP. SPOKE WITH DR. BOTELLO, NEW ORDER RECEIVED FOR DILAUDID. PATIENT NPO AND HAS NAUSEA/VOMITING. DILAUDID GIVEN. WILL MONITOR AND REASSESS.
--- NOTE | 2019-07-29 04:00 | NUR ---
PATIENT LESS RESTLESS, NO SIGNS OF DISTRESS. DILAUDID EFFECTIVE.
[2019-07-29 06:31] LABS: CREATININE 1.93 mg/dL (0.70-1.30)
--- NOTE | 2019-07-29 10:12 | NUR ---
PATIENT GIVEN TYLENOL AND ZOFRAN FOR NAUSEA, FEVER, CHILLS. C/O HEADACHE. CALL LIGHT WITHIN REACH. WILL CONTINUE TO MONITOR AND REASSESS.
[2019-07-29 10:47] LABS: CREATININE 1.56 mg/dL (0.70-1.30); POTASSIUM 3.9 mmol/L (3.5-5.1)
[2019-07-29 14:29] LABS: BUN 26 mg/dl (7-24); CHLORIDE 102 mmol/L (98-107); CREATININE 1.41 mg/dL (0.70-1.30); POTASSIUM 3.6 mmol/L (3.5-5.1); SODIUM 136 mmol/L (136-145)
--- NOTE | 2019-07-29 14:43 | NUR ---
Chef Kitchen Manager in to talk to patient. Patient states lives at HOME with . There are FEW steps in the home. Physician: ORLANDO HERMAN Pharmacy: [facility] Winter health services: NONE Patient's level of ADLs: INDEPENDENT Patient has working utilities: YES DME: NONE Follow-up physician's appointment after d/c: WILL BE MADE BY HOSPITALIST NURSE DIRECTOR ON DISCHARGE Does patient want to access PORTAL?: NO Discharge plan PT LIVES AT HOME WITH AND IS INDEPENDENT IN HIS CARE. STATES HE PLANS TO RETURN HOME WITH ON DISCHARGE AND WILL HAVE NO NEW NEEDS. WILL CONTINUE TO FOLLOW. STATES HE WILL HAVE A RIDE HOME.. REFUGIO REYNOLDS
--- NOTE | 2019-07-29 18:00 | NUR ---
SPOKE WITH DR. JONES. INSULIN GTT AND D5 1/2NS W/20KCL STOPPED AT THIS TIME. PATIENT COVERED PER SLIDING SCALE AND STARTED ON INSULIN PUMP FROM HOME.
[2019-07-29 18:11] LABS: BUN 22 mg/dl (7-24); CHLORIDE 98 mmol/L (98-107); CREATININE 1.35 mg/dL (0.70-1.30); POTASSIUM 3.9 mmol/L (3.5-5.1); SODIUM 135 mmol/L (136-145)
[2019-07-29 23:52] LABS: BUN 19 mg/dl (7-24); CHLORIDE 99 mmol/L (98-107); CREATININE 1.16 mg/dL (0.70-1.30); POTASSIUM 3.9 mmol/L (3.5-5.1); SODIUM 132 mmol/L (136-145)
[2019-07-30] VITALS: BP 129/78
--- NOTE | 2019-07-30 00:50 | NUR ---
PATIENT ASKING OF A PERCOCET FOR BACK PAIN, ALSO STATES HE FEELS NAUSEATED. ZOFRAN AND PERCOCET GIVEN. WILL MONITOR AND REASSESS.
--- NOTE | 2019-07-30 01:58 | NUR ---
24 HR chart check completed.
[2019-07-30 04:00] VITALS: BP 126/76
[2019-07-30 04:57] LABS: HEMOGLOBIN 10.5 g/dl (14.0-18.0); MEAN CELL VOLUME 92.5 fl (80.0-94.0); MEAN CORPUSCULAR HGB 31.3 pg (27.0-31.0); MEAN CORPUSCULAR HGB CONC 33.9 g/dl (33.0-37.0); MEAN PLATELET VOLUME 9.3 fl (9.6-12.3); RED BLOOD COUNT 3.35 10*6/uL (4.50-5.90); RED CELL DISTRI WIDTH 12.4 % (0-14.5); WHITE BLOOD COUNT 8.7 10*3/uL (4.8-10.8)
[2019-07-30 05:15] LABS: BUN 18 mg/dl (7-24); CHLORIDE 96 mmol/L (98-107); CREATININE 1.19 mg/dL (0.70-1.30); POTASSIUM 4.3 mmol/L (3.5-5.1); SODIUM 133 mmol/L (136-145)
[2019-07-30 05:16] LABS: PHOSPHOROUS 1.5 mg/dL (2.5-4.9)
[2019-07-30 05:22] LABS: PLATELET COUNT AUTOMATED 182 10*3/uL (130-400)
[2019-07-30 05:26] LABS: TOTAL CELLS COUNTED 100 #CELLS
[2019-07-30 05:27] LABS: PLATELET SUFFICIENCY NORMAL (NORMAL)
--- NOTE | 2019-07-30 06:08 | NUR ---
PATIENT STATED THE ZOFRAN IS NOT EFFECTIVE, NEW ORDER RECEIVED.
--- NOTE | 2019-07-30 06:21 | NUR ---
PHENERGAN GIVEN FOR NAUSEA. WILL MONITOR AND REASSESS.
[2019-07-30 08:00] VITALS: BP 129/78
[2019-07-30 12:00] VITALS: BP 112/76
--- NOTE | 2019-07-30 13:48 | NUR ---
PATIENT TAKEN DOWN FOR CT SCAN VIA WHEELCHAIR. PATIENT WILL BE TAKEN TO 506-2 AFTER SCANS ARE COMPLETE. REPORT GIVEN TO KATERINE BANDA.
--- NOTE | 2019-07-30 14:21 | NUR ---
PT CONTINUES TO DENY HE WILL HAVE NEEDS ON DISCHARGE. WILL CONTINUE TO FOLLOW.
[2019-07-30 16:00] VITALS: BP 155/88
--- NOTE | 2019-07-30 18:37 | NUR ---
PATIENT MEDICATED WITH PO PERCOCET FOR PAIN IN ABDOMEN RATED 9/10.
--- NOTE | 2019-07-30 18:47 | NUR ---
PATIENT MEDICATED WITH IVP ZOFRAN FOR NAUSEA
[2019-07-30 20:00] VITALS: BP 135/78
[2019-07-31] VITALS: BP 135/84
--- NOTE | 2019-07-31 00:10 | NUR ---
PT MEDICATED WITH PRN PERCOCET FOR C/O GENERALIZED PAIN RATED A 6/10. WILL MONITOR FOR EFFECTIVENESS.
[2019-07-31 06:43] LABS: BASO % 0.3 % (0.0-1.0); EOS % 0.2 % (1.0-4.0); HEMATOCRIT 36.1 % (42.0-52.0); HEMOGLOBIN 12.2 g/dl (14.0-18.0); LYMPH # 1.1 10*3/uL (1.3-4.4); LYMPH % 18.4 % (27.0-41.0); MEAN CELL VOLUME 91.4 fl (80.0-94.0); MEAN CORPUSCULAR HGB 30.9 pg (27.0-31.0); MEAN CORPUSCULAR HGB CONC 33.8 g/dl (33.0-37.0); MEAN PLATELET VOLUME 9.1 fl (9.6-12.3); MONO # 0.6 10*3/uL (0.1-1.0); NEUT # 4.2 10*3/uL (2.3-7.9); NEUT % 70.6 % (47.0-73.0); PLATELET COUNT AUTOMATED 194 10*3/uL (130-400); RED BLOOD COUNT 3.95 10*6/uL (4.50-5.90); RED CELL DISTRI WIDTH 11.9 % (0-14.5); WHITE BLOOD COUNT 5.9 10*3/uL (4.8-10.8)
[2019-07-31 07:18] LABS: ALBUMIN 3.5 gm/dl (3.1-4.5); BUN 9 mg/dl (7-24); CHLORIDE 93 mmol/L (98-107); LIPASE 166 U/L (73-393); POTASSIUM 3.8 mmol/L (3.5-5.1); SODIUM 129 mmol/L (136-145)
[2019-07-31 07:23] LABS: ALKALINE PHOSPHATASE 102 U/L (45-117); CREATININE 0.96 mg/dL (0.70-1.30); SGOT/AST 41 IU/L (3-35); SGPT/ALT 54 U/L (12-78); TOTAL PROTEIN 6.7 gm/dL (6.4-8.2)
[2019-07-31 08:00] VITALS: BP 158/98
--- NOTE | 2019-07-31 08:04 | NUR ---
BLOOD SUGAR RECHECKED AT THIS TIME PER PT REQUEST. BSG 249. BSG 283 EARLIER THIS MORNING. PATIENT THINKS HIS INSULIN PUMP IS DEFECTIVE. 5 UNITS OF INSULIN GIVEN PER S/S. WILL CONTINUE TO MONITOR. PT ALSO GIVEN PO PERCOCET PER PRN ORDER FOR C/O ALL OVER PAIN/DISCOMFORT. WILL MONITOR EFFECTIVENESS. CALL LIGHT WITHIN REACH.
--- NOTE | 2019-07-31 08:29 | NUR ---
IN TO SEE PATIENT REGARDING PLAN OF CARE.
--- NOTE | 2019-07-31 09:30 | NUR ---
PERCOCET RELIEVING PAIN PER PT. WILL CONTINUE TO MONITOR.
--- NOTE | 2019-07-31 10:06 | NUR ---
PATIENT REFUSING SURGICAL INTERVENTION AND STATES HE WILL BE DISCHARGED SOON.
[2019-07-31] MEDS ORDERED: CIPRO500 MG PO (10:41)
[2019-07-31] MEDS ORDERED: LANTUS SOL100 UNIT/1 SQ (10:41)
[2019-07-31] MEDS ORDERED: HUMALOG100 UNIT/1 SQ (10:41)
[2019-07-31] MEDS ORDERED: FLAGYL500 MG PO (10:41)
[2019-07-31] MEDS ORDERED: PROTONIX40 MG PO (10:42)
--- NOTE | 2019-07-31 11:38 | NUR ---
Discharge instructions reviewed with patient/family. Patient receptive and verbalizes understanding. Follow-up care arranged. Written instructions given to patient/family. GASPER OWEN.
== END 2019-07-31 11:38 | disposition home or self-care (01) | DRG 720 ==
LOC: ED 20:25 → EDHOLD 23:16 → ICCU 23:16 → 5E 07-30 12:57
PROVIDERS: Emergency Medicine; Internal Medicine; Nurse Practitioner Family; ADMIT Family Medicine
PROC: 06HY33Z Insertion of Infusion Device into Lower Vein, Percutaneous Approach (ICD-10-PCS; principal; 2019-07-29)
DX: A41.9 Sepsis, unspecified organism (principal); N17.0 Acute kidney failure with tubular necrosis; E11.10 Type 2 diabetes mellitus with ketoacidosis without coma; K81.0 Acute cholecystitis; E87.2 Acidosis; G93.41 Metabolic encephalopathy; E87.5 Hyperkalemia; D72.829 Elevated white blood cell count, unspecified; D53.9 Nutritional anemia, unspecified; I10 Essential (primary) hypertension; E86.0 Dehydration; L40.9 Psoriasis, unspecified; Z83.3 Family history of diabetes mellitus; Z81.1 Family history of alcohol abuse and dependence; Z84.0 Family history of diseases of the skin and subcutaneous tissue; Z79.4 Long term (current) use of insulin

== ENCOUNTER 2019-10-18 18:34 | Emergency (ER) | payer OTHER ==
[~2019-10-18] VITALS: Ht 175.2 cm; Wt 68.0 kg
[~2019-10-18 18:34] MED LIST changes: +CIPRO500 MG PO; +FLAGYL500 MG PO; +LANTUS SOL100 UNIT/1 SQ; +PROTONIX40 MG PO
== END 2019-10-18 21:02 | disposition home or self-care (01) ==
LOC: ED 18:34
DX: J40 Bronchitis, not specified as acute or chronic (principal); J06.9 Acute upper respiratory infection, unspecified; E10.9 Type 1 diabetes mellitus without complications; I10 Essential (primary) hypertension; Z79.899 Other long term (current) drug therapy; Z79.4 Long term (current) use of insulin

== ENCOUNTER 2020-05-21 23:46 | Emergency (ER) | payer OTHER ==
[~2020-05-21] VITALS: Ht 175.2 cm; Wt 68.0 kg
[2020-05-22] MEDS ORDERED: NORCO 5-325 TA1 EACH PO (01:08)
== END 2020-05-22 02:00 | disposition home or self-care (01) ==
LOC: ED 23:46
DX: S52.601A Unspecified fracture of lower end of right ulna, initial encounter for closed fracture (principal); X58.XXXA Exposure to other specified factors, initial encounter; Y93.89 Activity, other specified; Y92.89 Other specified places as the place of occurrence of the external cause; Y99.8 Other external cause status

== ENCOUNTER 2020-05-25 12:16 | Inpatient (IN) | payer OTHER ==
[~2020-05-25] VITALS: Ht 175.3 cm; Wt 64.9 kg
[~2020-05-25 12:16] MED LIST changes: +NORCO 5-325 TA1 EACH PO
[2020-05-25 12:37] VITALS: BP 92/45
[2020-05-25 13:16] LABS: HEMATOCRIT 43.8 % (42.0-52.0); MEAN CELL VOLUME 104.3 fl (80.0-94.0); MEAN CORPUSCULAR HGB 30.5 pg (27.0-31.0); MEAN CORPUSCULAR HGB CONC 29.2 g/dl (33.0-37.0); MEAN PLATELET VOLUME 10.8 fl (9.6-12.3); PLATELET COUNT AUTOMATED 459 10*3/uL (130-400); RED CELL DISTRI WIDTH 11.9 % (0-14.5)
[2020-05-25 13:27] LABS: ACT PARTIAL THROMBO TIME 31.8 SECONDS (20.0-32.1); INTERNATIONAL NORM RATIO 0.9 (2.0-3.5)
[2020-05-25 13:32] LABS: ALBUMIN 3.6 gm/dl (3.1-4.5); ALKALINE PHOSPHATASE 124 U/L (45-117); BUN 41 mg/dl (7-24); CHLORIDE 80 mmol/L (98-107); CREATININE 3.16 mg/dL (0.70-1.30); LIPASE 58 U/L (73-393); SGOT/AST 22 IU/L (3-35); SGPT/ALT 21 U/L (12-78); SODIUM 123 mmol/L (136-145); TOTAL PROTEIN 7.3 gm/dL (6.4-8.2)
[2020-05-25 13:34] LABS: PLATELET SUFFICIENCY HIGH (NORMAL); TOTAL CELLS COUNTED 100 #CELLS
[2020-05-25 13:37] LABS: TROPONIN I < 0.015 ng/ml (<0.045)
[2020-05-25 14:30] LABS: ARTERIAL BLOOD GAS PH 6.93 (7.35-7.45)
[2020-05-25 16:00] VITALS: BP 113/62
[2020-05-25 16:40] LABS: CREATININE 2.67 mg/dL (0.70-1.30); POTASSIUM 5.5 mmol/L (3.5-5.1)
[2020-05-25 16:50] LABS: ABG BASE EXCESS -23.3 mmol/L (-2.0-2.0); ARTERIAL BLOOD GAS PH 7.171 (7.35-7.45)
[2020-05-25 17:57] LABS: BILIRUBIN Negative (Negative); BLOOD 1+ (Negative); CLARITY Clear (Clear); COLOR Yellow (Yellow); GLUCOSE 3+ (Negative); KETONE 4+ (Negative); LEUKO ESTERASE Negative (Negative); NITRITE Negative (Negative); SPECIFIC GRAVITY 1.015 (1.001-1.030); UROBILINOGEN 0.2 E.U./dl (0.0-1.0)
[2020-05-25 18:24] LABS: ARTERIAL BLOOD GAS PH 7.24 (7.35-7.45)
[2020-05-25 18:26] LABS: ABG BASE EXCESS -19.2 mmol/L (-2.0-2.0)
[2020-05-25 18:28] LABS: EPITHELIAL CELLS 0-2; RBC 0-2 rbc/hpf (0-2); WBC 0-2 wbc/hpf (0-5)
[2020-05-25 19:40] LABS: ALBUMIN 2.6 gm/dl (3.1-4.5); CREATININE 2.05 mg/dL (0.70-1.30); TOTAL PROTEIN 5.4 gm/dL (6.4-8.2)
[2020-05-25 19:45] LABS: POTASSIUM 3.9 mmol/L (3.5-5.1)
[2020-05-25 19:50] LABS: ARTERIAL BLOOD GAS PH 7.275 (7.35-7.45)
[2020-05-25 19:55] LABS: ABG BASE EXCESS -16.1 mmol/L (-2.0-2.0)
[2020-05-25 20:00] VITALS: BP 103/52
[2020-05-25 20:53] LABS: ARTERIAL BLOOD GAS PH 7.297 (7.35-7.45)
[2020-05-25 20:56] LABS: ABG BASE EXCESS -13.4 mmol/L (-2.0-2.0)
[2020-05-25 21:41] LABS: ARTERIAL BLOOD GAS PH 7.327 (7.35-7.45)
[2020-05-25 21:42] LABS: ABG BASE EXCESS -11.9 mmol/L (-2.0-2.0)
[2020-05-25 22:00] VITALS: BP 119/61
[2020-05-25 22:22] LABS: CREATININE 1.89 mg/dL (0.70-1.30); POTASSIUM 3.8 mmol/L (3.5-5.1)
[2020-05-25 23:19] LABS: ARTERIAL BLOOD GAS PH 7.371 (7.35-7.45)
[2020-05-25 23:20] LABS: ABG BASE EXCESS -7.7 mmol/L (-2.0-2.0)
[2020-05-26] VITALS (9 sets, daily range): BP systolic 108–167; BP diastolic 53–77
[2020-05-26 00:07] LABS: ABG BASE EXCESS -6.2 mmol/L (-2.0-2.0); ARTERIAL BLOOD GAS PH 7.408 (7.35-7.45)
[2020-05-26 00:34] LABS: CREATININE 1.81 mg/dL (0.70-1.30); POTASSIUM 3.9 mmol/L (3.5-5.1)
[2020-05-26 01:59] LABS: ABG BASE EXCESS -2.1 mmol/L (-2.0-2.0); ARTERIAL BLOOD GAS PH 7.477 (7.35-7.45)
[2020-05-26 02:21] LABS: CREATININE 1.7 mg/dL (0.70-1.30); POTASSIUM 3.8 mmol/L (3.5-5.1)
[2020-05-26 05:01] LABS: ABG BASE EXCESS 1.5 mmol/L (-2.0-2.0); ARTERIAL BLOOD GAS PH 7.527 (7.35-7.45)
[2020-05-26 05:52] LABS: ALBUMIN 2.5 gm/dl (3.1-4.5); CREATININE 1.68 mg/dL (0.70-1.30); FREE T4 1.28 ng/dl (0.76-1.46); POTASSIUM 3.7 mmol/L (3.5-5.1)
[2020-05-26 05:56] LABS: THYROID STIM HORMONE (HS) 0.305 uIU/ml (0.358-4.75)
[2020-05-26 06:43] LABS: BASO % 0.1 % (0.0-1.0); HEMATOCRIT 27.7 % (42.0-52.0); LYMPH # 1.7 10*3/uL (1.3-4.4); LYMPH % 12.6 % (27.0-41.0); MEAN CORPUSCULAR HGB 30.5 pg (27.0-31.0); MEAN PLATELET VOLUME 9.9 fl (9.6-12.3); MONO # 1.3 10*3/uL (0.1-1.0); MONO % 9.6 % (3.0-9.0); NEUT # 10.1 10*3/uL (2.3-7.9); RED BLOOD COUNT 3.18 10*6/uL (4.50-5.90); WHITE BLOOD COUNT 13.1 10*3/uL (4.8-10.8)
[2020-05-26 06:44] LABS: MEAN CELL VOLUME 87.1 fl (80.0-94.0); PLATELET COUNT AUTOMATED 253 10*3/uL (130-400)
[2020-05-26 07:45] LABS: VITAMIN D, 25-HYDROXY 24.1 ng/mL (30-100)
[2020-05-26 08:15] LABS: CREATININE 1.56 mg/dL (0.70-1.30); POTASSIUM 4.1 mmol/L (3.5-5.1)
[2020-05-26 08:35] LABS: ABG BASE EXCESS -3.3 mmol/L (-2.0-2.0); ARTERIAL BLOOD GAS PH 7.375 (7.35-7.45)
[2020-05-26 10:35] LABS: CREATININE 1.53 mg/dL (0.70-1.30); POTASSIUM 4.6 mmol/L (3.5-5.1)
[2020-05-26] MEDS ORDERED: LANTUS SOL100 UNIT/1 SC (14:54)
[2020-05-26] MEDS ORDERED: HUMALOG100 UNIT/2 SC (14:56)
[2020-05-26 15:54] LABS: ALBUMIN 2.8 gm/dl (3.1-4.5); CREATININE 1.52 mg/dL (0.70-1.30); POTASSIUM 4.2 mmol/L (3.5-5.1); TOTAL PROTEIN 5.8 gm/dL (6.4-8.2)
[2020-05-26 21:38] LABS: BUN 17 mg/dl (7-24); CHLORIDE 116 mmol/L (98-107); CREATININE 1.13 mg/dL (0.70-1.30); POTASSIUM 3.7 mmol/L (3.5-5.1); SODIUM 150 mmol/L (136-145)
[2020-05-27] VITALS: BP 167/76
== END 2020-05-27 01:36 | disposition short-term general hospital (02) | DRG 133 ==
LOC: ED → ICCU 14:29 → EDHOLD 14:29 → ICCU 14:53
PROVIDERS: Emergency Medicine; Internal Medicine; Internal Medicine Critical Care Medicine; ADMIT Internal Medicine; ATTEND Internal Medicine
PROC: 0BH17EZ Insertion of Endotracheal Airway into Trachea, Via Natural or Artificial Opening (ICD-10-PCS; principal; 2020-05-25)
PROC: 5A1935Z Respiratory Ventilation, Less than 24 Consecutive Hours (ICD-10-PCS; 2020-05-25)
PROC: 03HY32Z Insertion of Monitoring Device into Upper Artery, Percutaneous Approach (ICD-10-PCS; 2020-05-25)
PROC: 4A133B1 Monitoring of Arterial Pressure, Peripheral, Percutaneous Approach (ICD-10-PCS; 2020-05-25)
PROC: 4A133J1 Monitoring of Arterial Pulse, Peripheral, Percutaneous Approach (ICD-10-PCS; 2020-05-25)
DX: J96.00 Acute respiratory failure, unspecified whether with hypoxia or hypercapnia (principal); E10.10 Type 1 diabetes mellitus with ketoacidosis without coma; N17.0 Acute kidney failure with tubular necrosis; I95.9 Hypotension, unspecified; R65.11 Systemic inflammatory response syndrome (SIRS) of non-infectious origin with acute organ dysfunction; L40.9 Psoriasis, unspecified; E87.5 Hyperkalemia; T85.694A Other mechanical complication of insulin pump, initial encounter; D53.9 Nutritional anemia, unspecified; E86.0 Dehydration; R79.82 Elevated C-reactive protein (CRP); E83.41 Hypermagnesemia; G93.41 Metabolic encephalopathy; I08.1 Rheumatic disorders of both mitral and tricuspid valves; I11.9 Hypertensive heart disease without heart failure; I48.91 Unspecified atrial fibrillation; E87.8 Other disorders of electrolyte and fluid balance, not elsewhere classified; E87.3 Alkalosis; F17.220 Nicotine dependence, chewing tobacco, uncomplicated; E83.39 Other disorders of phosphorus metabolism; E87.0 Hyperosmolality and hypernatremia; X58.XXXD Exposure to other specified factors, subsequent encounter; Y83.1 Surgical operation with implant of artificial internal device as the cause of abnormal reaction of the patient, or of later complication, without mention of misadventure at the time of the procedure; Z84.0 Family history of diseases of the skin and subcutaneous tissue; Z83.3 Family history of diabetes mellitus; Z81.1 Family history of alcohol abuse and dependence; Z82.49 Family history of ischemic heart disease and other diseases of the circulatory system; S52.602D Unspecified fracture of lower end of left ulna, subsequent encounter for closed fracture with routine healing; Z87.442 Personal history of urinary calculi; Y92.89 Other specified places as the place of occurrence of the external cause

== ENCOUNTER 2020-11-03 15:45 | Emergency (ER) | payer OTHER ==
[~2020-11-03] VITALS: Ht 175.2 cm; Wt 68.0 kg
[~2020-11-03 15:45] MED LIST changes: +HUMALOG100 UNIT/2 SC; +LANTUS SOL100 UNIT/1 SC
[2020-11-03] MEDS ORDERED: PREDNISONE20 M1 PO ×2 (17:47→17:59)
[2020-11-03] MEDS ORDERED: ROBAXIN-750750 MG PO ×2 (17:47→17:59)
[2020-11-03] MEDS ORDERED: HYDROCODONE-AC1 EAC1 PO (17:59)
== END 2020-11-03 17:52 | disposition home or self-care (01) ==
LOC: ED 15:45
DX: M54.42 Lumbago with sciatica, left side (principal); I10 Essential (primary) hypertension; E11.9 Type 2 diabetes mellitus without complications; Z79.899 Other long term (current) drug therapy; Z79.4 Long term (current) use of insulin; Z98.890 Other specified postprocedural states

== ENCOUNTER → 2020-11-07 | Outpatient (CLI) | payer OTHER ==
[~2020-11-07] MED LIST changes: +HYDROCODONE-AC1 EAC1 PO; +PREDNISONE20 M1 PO; +ROBAXIN-750750 MG PO
[2020-11-07 16:52] LABS: BASO # 0.1 10*3/uL (0.0-0.1); BASO % 0.5 % (0.0-1.0); EOS # 0.3 10*3/uL (0.0-0.4); HEMATOCRIT 39.8 % (42.0-52.0); LYMPH # 2.2 10*3/uL (1.3-4.4); LYMPH % 23.9 % (27.0-41.0); MEAN CELL VOLUME 89.4 fl (80.0-94.0); MEAN CORPUSCULAR HGB 30.1 pg (27.0-31.0); MEAN CORPUSCULAR HGB CONC 33.7 g/dl (33.0-37.0); MEAN PLATELET VOLUME 9.8 fl (9.6-12.3); MONO # 0.6 10*3/uL (0.1-1.0); MONO % 6.2 % (3.0-9.0); NEUT # 6.1 10*3/uL (2.3-7.9); NEUT % 66.1 % (47.0-73.0); PLATELET COUNT AUTOMATED 295 10*3/uL (130-400); RED BLOOD COUNT 4.45 10*6/uL (4.50-5.90); RED CELL DISTRI WIDTH 12.6 % (0-14.5); WHITE BLOOD COUNT 9.3 10*3/uL (4.8-10.8)
[2020-11-07 17:20] LABS: ALBUMIN 3.2 gm/dl (3.1-4.5); ALKALINE PHOSPHATASE 122 U/L (45-117); BUN 15 mg/dl (7-24); CHLORIDE 101 mmol/L (98-107); CREATININE 1.22 mg/dL (0.70-1.30); POTASSIUM 4.5 mmol/L (3.5-5.1); SGOT/AST 11 IU/L (3-35); SGPT/ALT 28 U/L (12-78); SODIUM 132 mmol/L (136-145); TOTAL PROTEIN 6.9 gm/dL (6.4-8.2)
[2020-11-13 16:08] LABS: TB1 Ag VALUE 0.03 IU/mL (.)
== END | disposition home or self-care (01) ==
LOC: LAB 16:07
PROVIDERS: ATTEND Specialist
DX: L40.0 Psoriasis vulgaris (principal); Z79.899 Other long term (current) drug therapy

== ENCOUNTER → 2020-12-12 | Outpatient (CLI) | payer OTHER ==
[2020-12-12 12:31] LABS: BASO # 0.1 10*3/uL (0.0-0.1); EOS # 0.3 10*3/uL (0.0-0.4); EOS % 4.1 % (1.0-4.0); HEMATOCRIT 35.4 % (42.0-52.0); LYMPH # 2.2 10*3/uL (1.3-4.4); LYMPH % 26.2 % (27.0-41.0); MEAN CELL VOLUME 86.6 fl (80.0-94.0); MEAN CORPUSCULAR HGB 29.6 pg (27.0-31.0); MEAN CORPUSCULAR HGB CONC 34.2 g/dl (33.0-37.0); MEAN PLATELET VOLUME 9.6 fl (9.6-12.3); MONO # 0.8 10*3/uL (0.1-1.0); MONO % 9.3 % (3.0-9.0); NEUT # 4.9 10*3/uL (2.3-7.9); PLATELET COUNT AUTOMATED 370 10*3/uL (130-400); RED BLOOD COUNT 4.09 10*6/uL (4.50-5.90); RED CELL DISTRI WIDTH 12.1 % (0-14.5); WHITE BLOOD COUNT 8.4 10*3/uL (4.8-10.8)
[2020-12-12 12:40] LABS: CHOLESTEROL 185 mg/dL (<200); LDL CHOLESTEROL 72 mg/dL (9-159); TRIGLYCERIDES 338 mg/dl (<150)
[2020-12-13 04:06] LABS: LDL CHOLESTEROL (DIRECT) 81 mg/dL (0-99)
[2020-12-13 11:07] LABS: CREATININE,URINE 39.9 mg/dL (Not Estab.)
== END | disposition home or self-care (01) ==
LOC: LAB 11:50
PROVIDERS: ATTEND Physician Assistant
DX: E10.65 Type 1 diabetes mellitus with hyperglycemia (principal); E78.5 Hyperlipidemia, unspecified; E55.9 Vitamin D deficiency, unspecified; R53.83 Other fatigue

== ENCOUNTER 2021-05-09 03:04 | Emergency (ER) | payer OTHER ==
[2021-05-09] MEDS ORDERED: Motrin,Rufen800 MG PO ×2 (11:34→11:36)
[2021-05-09] MEDS ORDERED: PERCOCET 5-3251 EACH PO (11:35)
== END 2021-05-09 11:44 | disposition home or self-care (01) ==
LOC: ED 03:04
DX: S39.012A Strain of muscle, fascia and tendon of lower back, initial encounter (principal); F17.220 Nicotine dependence, chewing tobacco, uncomplicated; X58.XXXA Exposure to other specified factors, initial encounter; Y93.89 Activity, other specified; Y92.89 Other specified places as the place of occurrence of the external cause; Y99.8 Other external cause status

== ENCOUNTER 2021-07-22 20:55 | Emergency (ER) | payer OTHER ==
[~2021-07-22] VITALS: Ht 175.2 cm; Wt 68.0 kg
[~2021-07-22 20:55] MED LIST changes: +Motrin,Rufen800 MG PO; +PERCOCET 5-3251 EACH PO
[2021-07-23] MEDS ORDERED: CYCLOBENZAPRINE10 MG PO (03:58)
== END 2021-07-23 04:04 | disposition home or self-care (01) ==
LOC: ED 20:55
DX: S20.212A Contusion of left front wall of thorax, initial encounter (principal); X58.XXXA Exposure to other specified factors, initial encounter; Y93.89 Activity, other specified; Y92.89 Other specified places as the place of occurrence of the external cause; Y99.8 Other external cause status

== ENCOUNTER 2021-10-13 13:52 | Emergency (ER) | payer OTHER ==
[~2021-10-13] VITALS: Ht 175.2 cm; Wt 68.0 kg
[2021-10-13] MEDS ORDERED: STELARA45 MG/0.5 SC (14:18)
[2021-10-13] MEDS ORDERED: VOLTAREN ARTHRI20 GM T ×3 (15:51→18:31)
[2021-10-13] MEDS ORDERED: TYLENOL325 M1 PO ×3 (15:51→18:31)
[2021-10-13] MEDS ORDERED: NAPROXEN250 MG PO ×3 (15:51→18:31)
[2021-10-13] MEDS ORDERED: CYCLOBENZAPRINE10 MG PO ×3 (15:51→18:31)
== END 2021-10-13 16:01 | disposition home or self-care (01) ==
LOC: ED 13:52
DX: R07.89 Other chest pain (principal); I10 Essential (primary) hypertension; E10.9 Type 1 diabetes mellitus without complications

== ENCOUNTER → 2022-07-22 | Outpatient (CLI) | payer OTHER ==
[~2022-07-22] MED LIST changes: +NAPROXEN250 MG PO; +STELARA45 MG/0.5 SC; +TYLENOL325 M1 PO; +VOLTAREN ARTHRI20 GM T
[2022-07-22 14:12] LABS: BASO # 0.1 10*3/uL (0.0-0.1); BASO % 1.1 % (0.0-1.0); EOS # 0.2 10*3/uL (0.0-0.4); EOS % 3.3 % (1.0-4.0); HEMATOCRIT 38.5 % (42.0-52.0); LYMPH # 1.6 10*3/uL (1.3-4.4); LYMPH % 22.6 % (27.0-41.0); MEAN CELL VOLUME 87.9 fl (80.0-94.0); MEAN CORPUSCULAR HGB 31.3 pg (27.0-31.0); MEAN CORPUSCULAR HGB CONC 35.6 g/dl (33.0-37.0); MEAN PLATELET VOLUME 9.6 fl (9.6-12.3); MONO # 0.6 10*3/uL (0.1-1.0); MONO % 8.4 % (3.0-9.0); NEUT # 4.7 10*3/uL (2.3-7.9); NEUT % 64.2 % (47.0-73.0); PLATELET COUNT AUTOMATED 311 10*3/uL (130-400); RED BLOOD COUNT 4.38 10*6/uL (4.50-5.90); RED CELL DISTRI WIDTH 12.4 % (0-14.5); WHITE BLOOD COUNT 7.3 10*3/uL (4.8-10.8)
[2022-07-22 14:32] LABS: ALKALINE PHOSPHATASE 124 U/L (46-116); BUN 16 mg/dl (9-23); CHLORIDE 93 mmol/L (98-107); CREATININE 1.05 mg/dL (0.70-1.30); POTASSIUM 4.6 mmol/L (3.4-5.1); SGPT/ALT 46 U/L (10-49); SODIUM 130 mmol/L (136-145); TOTAL PROTEIN 7.3 gm/dL (6.0-8.0)
== END | disposition home or self-care (01) ==
LOC: LAB 13:42
PROVIDERS: ATTEND Specialist
DX: L40.0 Psoriasis vulgaris (principal); Z79.891 Long term (current) use of opiate analgesic

== ENCOUNTER 2022-12-24 21:27 | Emergency (ER) | payer OTHER ==
[~2022-12-24] VITALS: Ht 175.2 cm; Wt 68.0 kg
[2022-12-24] MEDS ORDERED: LISINOPRIL20 MG PO (21:58)
[2022-12-24] MEDS ORDERED: AMOXICILLIN500 M3 PO (22:06)
== END 2022-12-24 22:26 | disposition home or self-care (01) ==
LOC: ED 21:27
DX: H66.92 Otitis media, unspecified, left ear (principal); H60.92 Unspecified otitis externa, left ear; I10 Essential (primary) hypertension; E11.9 Type 2 diabetes mellitus without complications

== ENCOUNTER 2023-02-08 20:03 | Emergency (ER) | payer OTHER ==
[~2023-02-08] VITALS: Ht 175.2 cm; Wt 68.0 kg
[~2023-02-08 20:03] MED LIST changes: +AMOXICILLIN500 M3 PO; +LISINOPRIL20 MG PO
[2023-02-08] MEDS ORDERED: HYDROCODONE-AC1 EACH PO (21:05)
[2023-02-08] MEDS ORDERED: NAPROSYN500 MG PO (21:05)
== END 2023-02-08 21:55 | disposition home or self-care (01) ==
LOC: ED 20:03
DX: S83.91XA Sprain of unspecified site of right knee, initial encounter (principal); I10 Essential (primary) hypertension; Z79.4 Long term (current) use of insulin; E11.10 Type 2 diabetes mellitus with ketoacidosis without coma; Z98.890 Other specified postprocedural states; F17.220 Nicotine dependence, chewing tobacco, uncomplicated; X50.1XXA Overexertion from prolonged static or awkward postures, initial encounter; Y93.89 Activity, other specified; Y92.89 Other specified places as the place of occurrence of the external cause; Y99.8 Other external cause status

== ENCOUNTER → 2023-07-09 | Outpatient (CLI) | payer OTHER ==
[~2023-07-09] MED LIST changes: +HYDROCODONE-AC1 EACH PO; +NAPROSYN500 MG PO
== END | disposition home or self-care (01) ==
LOC: RAD 12:52
PROVIDERS: ATTEND Internal Medicine
DX: M25.511 Pain in right shoulder (principal); M54.50 Low back pain, unspecified

== ENCOUNTER → 2024-02-03 | Outpatient (CLI) | payer OTHER ==
[2024-02-03 12:07] LABS: BASO # 0.1 10*3/uL (0.0-0.1); BASO % 1.1 % (0.0-1.0); EOS # 0.3 10*3/uL (0.0-0.4); EOS % 3.3 % (1.0-4.0); LYMPH # 2.4 10*3/uL (1.3-4.4); LYMPH % 23.9 % (27.0-41.0); MEAN CELL VOLUME 88.5 fl (80.0-94.0); MEAN CORPUSCULAR HGB 30.9 pg (27.0-31.0); MEAN CORPUSCULAR HGB CONC 34.9 g/dl (33.0-37.0); MEAN PLATELET VOLUME 9.7 fl (9.6-12.3); MONO # 0.6 10*3/uL (0.1-1.0); MONO % 6.4 % (3.0-9.0); NEUT # 6.5 10*3/uL (2.3-7.9); NEUT % 64.9 % (47.0-73.0); PLATELET COUNT AUTOMATED 363 10*3/uL (130-400); RED BLOOD COUNT 4.18 10*6/uL (4.50-5.90); RED CELL DISTRI WIDTH 12.3 % (0-14.5)
[2024-02-03 12:34] LABS: ALKALINE PHOSPHATASE 123 U/L (46-116); BUN 25 mg/dl (9-23); CHLORIDE 95 mmol/L (98-107); SGPT/ALT 16 U/L (5-49); TOTAL PROTEIN 7.3 gm/dL (6.0-8.0)
[2024-02-05 19:16] LABS: TB1 Ag VALUE 0.02 IU/mL (.)
== END ==
LOC: LAB 11:28
PROVIDERS: ATTEND Specialist
DX: L40.0 Psoriasis vulgaris (principal); Z79.899 Other long term (current) drug therapy

== ENCOUNTER → 2024-02-04 | Outpatient (CLI) | payer OTHER ==
[2024-02-04 13:44] LABS: URINE CREATININE RANDOM 151.37 mg/dL
[2024-02-04 13:55] LABS: CHOLESTEROL 190 mg/dL (<200); LDL CHOLESTEROL 74 mg/dL (9-159); TRIGLYCERIDES 259 mg/dl (<150)
== END | disposition home or self-care (01) ==
LOC: LAB 13:12
PROVIDERS: ATTEND Internal Medicine
DX: E10.69 Type 1 diabetes mellitus with other specified complication (principal)

== ENCOUNTER → 2024-02-20 | Outpatient (CLI) | payer OTHER ==
[2024-02-20 14:37] LABS: ALKALINE PHOSPHATASE 99 U/L (46-116); BUN 17 mg/dl (9-23); CHLORIDE 102 mmol/L (98-107); POTASSIUM 3.7 mmol/L (3.4-5.1); SGPT/ALT 12 U/L (5-49); TOTAL PROTEIN 6.8 gm/dL (6.0-8.0)
== END | disposition home or self-care (01) ==
LOC: US 12:30 → LAB 12:56
PROVIDERS: ATTEND Internal Medicine Nephrology
DX: N28.1 Cyst of kidney, acquired (principal); N17.9 Acute kidney failure, unspecified; E83.9 Disorder of mineral metabolism, unspecified; N32.89 Other specified disorders of bladder; Z96.0 Presence of urogenital implants

== ENCOUNTER → 2024-04-22 | Outpatient (CLI) | payer OTHER | END | disposition home or self-care (01) | LOC: RAD 15:04 | PROVIDERS: ATTEND Internal Medicine | DX: M25.561 Pain in right knee (principal); M25.562 Pain in left knee ==

== ENCOUNTER → 2025-01-13 | Outpatient (CLI) | payer OTHER ==
[~2025-01-13] MED LIST changes: +AMLODIPINE BESY10 MG PO; +ARICEPT10 M1 PO; +ASPIRIN CHILDRE81 MG PO; +ATORVASTATIN CA20 M1 PO; +CLOPIDOGREL75 MG PO; +EFFEXOR XR75 M1 PO; +HUMALOG100 UNIT/1 SC; +MELOXICAM7.5 MG PO; +VITAMIN D3125 MCG PO
[2025-01-13 13:52] LABS: BASO # 0.1 10*3/uL (0.0-0.1); BASO % 0.6 % (0.0-1.0); EOS # 0.2 10*3/uL (0.0-0.4); EOS % 2.7 % (1.0-4.0); HEMATOCRIT 29.3 % (42.0-52.0); MEAN CELL VOLUME 84.4 fl (80.0-94.0); MEAN CORPUSCULAR HGB 27.1 pg (27.0-31.0); MEAN CORPUSCULAR HGB CONC 32.1 g/dl (33.0-37.0); MEAN PLATELET VOLUME 9.1 fl (9.6-12.3); MONO # 0.7 10*3/uL (0.1-1.0); MONO % 8.7 % (3.0-9.0); NEUT % 61.6 % (47.0-73.0); PLATELET COUNT AUTOMATED 504 10*3/uL (130-400); RED BLOOD COUNT 3.47 10*6/uL (4.50-5.90); RED CELL DISTRI WIDTH 14.2 % (0-14.5); WHITE BLOOD COUNT 8.1 10*3/uL (4.8-10.8)
[2025-01-13 14:14] LABS: ALKALINE PHOSPHATASE 124 U/L (46-116); BUN 17 mg/dl (9-23); CHLORIDE 92 mmol/L (98-107); POTASSIUM 3.7 mmol/L (3.4-5.1); SGPT/ALT 10 U/L (5-49); TOTAL PROTEIN 7.1 gm/dL (6.0-8.0)
[2025-01-15 16:07] LABS: TB1 Ag VALUE 0.03 IU/mL (.)
== END | disposition home or self-care (01) ==
LOC: LAB 13:19
PROVIDERS: ATTEND Nurse Practitioner Family
DX: L40.0 Psoriasis vulgaris (principal)

== ENCOUNTER 2025-05-02 12:16 | Emergency (ER) | payer OTHER ==
[~2025-05-02] VITALS: Ht 175.2 cm; Wt 59.0 kg
[~2025-05-02 12:16] MED LIST changes: +CYMBALTA30 MG PO; +OMNIPOD DASH1 EACH SQ; +[UNRECOGNIZED DRUG - OTHER] SQ
[2025-05-02] MEDS ORDERED: SODIUM CHLORIDE 0.9% 1,000 ML IV ONE ×3 (12:30→13:40)
[2025-05-02] MEDS ORDERED: Ondansetron Hydrochloride 4 MG/2 ML VIAL IV ONE ×2 (12:35→14:20)
[2025-05-02 12:54] LABS: BASO # 0.1 10*3/uL (0.0-0.1); BASO % 0.6 % (0.0-1.0); EOS # 0.0 10*3/uL (0.0-0.4); EOS % 0.3 % (1.0-4.0); MEAN CELL VOLUME 80.0 fl (80.0-94.0); MEAN CORPUSCULAR HGB 26.8 pg (27.0-31.0); MEAN PLATELET VOLUME 8.7 fl (9.6-12.3); MONO # 0.9 10*3/uL (0.1-1.0); MONO % 7.1 % (3.0-9.0); NEUT # 9.2 10*3/uL (2.3-7.9); NEUT % 74.3 % (47.0-73.0); NUCLEATED RED BLOOD CELL 0.0 % (0.0-0.0); NUCLEATED RED BLOOD CELL 0.0 10*3/uL (0.0-0.0); PLATELET COUNT AUTOMATED 526 10*3/uL (130-400); RED CELL DISTRI WIDTH 14.1 % (0-14.5); VENOUS BLOOD GAS O2 SAT 93.6 % (60.0-85.0)
[2025-05-02 13:29] LABS: BUN 33.0 mg/dl (9-23)
[2025-05-02] MEDS ORDERED: Acetaminophen/Oxycodone Hydr 7.5 MG/325 MG TABLET PO ONE (14:05)
[2025-05-02] MEDS ORDERED: FAMOTIDINE 50 ML IV ONE (14:20)
[2025-05-02] MEDS ORDERED: Ondansetron4 MG PO (16:00)
== END 2025-05-02 15:52 | disposition home or self-care (01) ==
LOC: ED 12:16
PROVIDERS: Emergency Medicine
DX: R11.2 Nausea with vomiting, unspecified (principal); N17.9 Acute kidney failure, unspecified; I10 Essential (primary) hypertension; E11.9 Type 2 diabetes mellitus without complications; M19.90 Unspecified osteoarthritis, unspecified site; F12.90 Cannabis use, unspecified, uncomplicated; F17.290 Nicotine dependence, other tobacco product, uncomplicated; Z87.442 Personal history of urinary calculi

== ENCOUNTER 2025-06-25 12:35 | Emergency (ER) | payer OTHER ==
[~2025-06-25] VITALS: Ht 175.2 cm; Wt 68.0 kg
[~2025-06-25 12:35] MED LIST changes: +Ondansetron4 MG PO
[2025-06-25] MEDS ORDERED: Metoclopramide Hydrochloride 10 MG/2 ML VIAL IV ONE (12:55)
[2025-06-25] MEDS ORDERED: diphenhydrAMINE hydrochloride 50 MG/ML VIAL IV ONE (12:55)
[2025-06-25] MEDS ORDERED: SODIUM CHLORIDE 0.9% 1,000 ML IV ONE (12:55)
[2025-06-25] MEDS ORDERED: Ondansetron Hydrochloride 4 MG/2 ML VIAL IV ONE ×2 (12:55→14:30)
[2025-06-25 13:19] LABS: BASO # 0.1 10*3/uL (0.0-0.1); BASO % 0.8 % (0.0-1.0); EOS # 0.3 10*3/uL (0.0-0.4); EOS % 3.1 % (1.0-4.0); MEAN CELL VOLUME 83.3 fl (80.0-94.0); MEAN CORPUSCULAR HGB 28.0 pg (27.0-31.0); MEAN PLATELET VOLUME 9.6 fl (9.6-12.3); MONO # 0.8 10*3/uL (0.1-1.0); MONO % 8.5 % (3.0-9.0); NEUT # 6.8 10*3/uL (2.3-7.9); NEUT % 70.6 % (47.0-73.0); NUCLEATED RED BLOOD CELL 0.0 % (0.0-0.0); NUCLEATED RED BLOOD CELL 0.0 10*3/uL (0.0-0.0); PLATELET COUNT AUTOMATED 340 10*3/uL (130-400); RED CELL DISTRI WIDTH 14.0 % (0-14.5)
[2025-06-25 13:41] LABS: BUN 22.0 mg/dl (9-23); SGPT/ALT 21.0 U/L (5-49)
[2025-06-25] MEDS ORDERED: REGLAN10 M1 PO (14:53)
[2025-06-25] MEDS ORDERED: Ondansetron4 MG PO (14:53)
== END 2025-06-25 15:01 | disposition home or self-care (01) ==
LOC: ED 12:35
PROVIDERS: Emergency Medicine
DX: R10.13 Epigastric pain (principal); R11.10 Vomiting, unspecified; E11.22 Type 2 diabetes mellitus with diabetic chronic kidney disease; I12.9 Hypertensive chronic kidney disease with stage 1 through stage 4 chronic kidney disease, or unspecified chronic kidney disease; N18.9 Chronic kidney disease, unspecified; E11.65 Type 2 diabetes mellitus with hyperglycemia; F12.90 Cannabis use, unspecified, uncomplicated; Z87.442 Personal history of urinary calculi